=== PATIENT | male | born 1950 | race Caucasian/White ===

== ENCOUNTER → 2016-05-30 | Outpatient (CLI) | payer BC, MEDICARE ==
[~2016-05-30] MED LIST: ASPI-586 PO; LANS15CA16 PO; LOSA100T8 PO; PARO25TA14 PO; SOTA80TA PO
--- NOTE | 2016-05-30 09:14 | Diagnostic Imaging Report ---
PROCEDURE: US PELVIC (NON OB) TECHNIQUE: Multiple real-time grayscale images were obtained over the pelvis in various projections transabdominally. INDICATION: Renal cysts. Multiple real-time grayscale images are obtained through the pelvis. The urinary bladder was well-distended and no diverticula or intraluminal urinary bladder lesion was identified. No pelvic mass was identified. The prostate gland was not assessed. Postvoid imaging was not performed. IMPRESSION: Images of the urinary bladder distended are within normal limits. Dictated by: Dictated on workstation # [id number]
--- NOTE | 2016-05-30 09:27 | Diagnostic Imaging Report ---
PROCEDURE: US abdomen complete. TECHNIQUE: Multiple real-time grayscale images were obtained over the abdomen in various projections. INDICATION: Renal cyst. COMPARISON: 05/09/2015. Liver is normal in size and echogenicity. Hepatopedal flow is present in the main portal vein. The intrahepatic bile ducts are normal. The CBD is normal in diameter at 3 mm. The gallbladder is negative. The pancreas cannot be adequately seen for assessment. The inferior vena cava was negative. The aorta showed atheromatous changes with no aneurysm. No free fluid is identified. The spleen is not well visualized, however, do not show any obvious abnormality. Both kidneys are negative for hydronephrosis. Multiple masses are present in both kidneys which have features of simple cysts. The largest is in the left kidney measuring about 20 cm. There is no intracystic nodule or mass visible. The appearance is similar to 05/09/2015. IMPRESSION: 1. Numerous simple renal cysts cysts with the largest about 19 cm. Otherwise negative study. Dictated by: Dictated on workstation # [id number]
== END ==
LOC: RAD 07:18
PROVIDERS: ATTEND Family Medicine
DX: N28.1 Cyst of kidney, acquired (principal); E78.2 Mixed hyperlipidemia
CPT/HCPCS: 36415; 76700; 76856; 80061